=== PATIENT | male | born 1955 | race Two or more races ===

== ENCOUNTER 2017-01-24 00:10 | Emergency (ER) | payer SELFPAY ==
[~2017-01-24] VITALS: Ht 165.1 cm; Wt 54.4 kg
[2017-01-24] MEDS ORDERED: Pseudoephedrine 30mg tab ORAL ONE (01:30)
[2017-01-24] MEDS ORDERED: Neo-Synephrine 0.5% Nasal Soln NASAL ONE (01:30)
[2017-01-24 02:30] VITALS: BP 166/91
[2017-01-24] MEDS ORDERED: Phenylephrine 50 MG in D5W 245 ML IV SCH ×2 (02:30→02:45)
[2017-01-24] MEDS ORDERED: Phenylephrine 10mg/ml 5ml vial IV ONE (02:36)
--- NOTE | 2017-01-24 03:26 | Emergency Room Report ---
History of Present Illness General Chief Complaint: Male Urogenital Problems Source: Patient Present Illness HPI This is a 61-year-old male with a history of rectal dysfunction. He is seen a urologist in [place]. He received injection to the penis yesterday at 1 PM. Since then he has an erection. Now painful. He uses Andrew-Synephrine nasal spray without any relief. Nothing helped. He presents here over 12 hours later. No trauma. Never had this problem before. Allergies: Coded Allergies: No Known Allergies (Unverified , 01/24/17) Patient History Past Medical History: see triage record, old chart reviewed Past Surgical History: other Pertinent Family History: none Social History: Denies: smoking Immunizations: other Reviewed Nursing Documentation: PMH: Agreed, PSxH: Agreed Nursing Documentation-PMH Past Medical History: No Stated History Review of Systems Eye: Denies: blurred vision, eye pain ENT: Denies: ear pain, nose congestion, throat swelling Respiratory: Denies: cough, shortness of breath Cardiovascular: Denies: chest pain, palpitations Gastrointestinal: Denies: abdominal pain, diarrhea, nausea, vomiting Musculoskeletal: Denies: back pain, joint pain Skin: Denies: rash Neurological: Denies: headache, numbness Endocrine: Denies: increased thirst, increased urine Hematologic/Lymphatic: Denies: easy bruising All Other Systems: negative except mentioned in HPI Physical Exam Vital Signs Date Time Temp Pulse Resp B/P Pulse Ox O2 Delivery O2 Flow Rate FiO2 01/24/17 00:46 98.2 80 16 158/75 100 Room Air vitals with hypertension Sp02 EP Interpretation: reviewed, normal General Appearance: well appearing, no apparent distress, alert Head: normocephalic, atraumatic Eyes: bilateral eye EOMI, bilateral eye PERRL ENT: hearing grossly normal, normal pharynx Neck: full range of motion, supple, no meningismus Respiratory: chest non-tender, lungs clear, normal breath sounds Cardiovascular #1: regular rate, rhythm, no murmur Gastrointestinal: normal bowel sounds, non tender, no mass, no organomegaly, no bruit, non-distended Genitourinary: other - Priapism Musculoskeletal: back normal, gait/station normal, normal range of motion Neurologic: alert, oriented x3 Psychiatric: mood/affect normal Skin: warm/dry Procedures Critical Care Time Critical Care Time Critical care is mandated in this patient who presented with priapism over 12 hours. Patient require my urgent intervention to attenuate the risks of necrosis which may lead to penile necrosis. Critical care time is 35 minutes excluding any reportable procedure. Critical care time included evaluation, multiple reevaluation, looking at old charts, interpreting laboratory and diagnostic data, discussing case with patient and family and consultants, and charting. Medical Decision Making Diagnostic Impression: Primary Impression: Priapism ER Course Patient with priapism. This induced by medication injection. There was no Sudafed in the hospital. Patient is given Andrew-Synephrine nasal spray without any relief. No relief with ice pack to the groin. I called Dr. Forman, urologist. He woke him in to see the patient. I order Phenylephredrine to the bedside. Urologist came to the ER and the procedure the patient. I presume results. Patient felt better. We'll discharge home. Last Vital Signs Date Time Temp Pulse Resp B/P Pulse Ox O2 Delivery O2 Flow Rate FiO2 01/24/17 00:46 98.2 80 16 158/75 100 Room Air Status: improved Disposition: HOME, SELF-CARE Condition: Stable Referrals: NON PHYSICIAN (PCP) Additional Instructions: Followup with your urologist in 2-3 days. Return if symptom worsen. DARREL GUPTA M.D. Jan 24, 2017 03:26
[2017-01-24 05:15] VITALS: BP 133/77
--- NOTE | 2017-01-24 05:24 | Consultation ---
History of Present Illness General Date patient seen: Jan 24, 2017 Time patient seen: 05:15 Chief Complaint: Male Urogenital Problems Reason for Consultation: priapism Present Illness HPI 61 yo male self injected with medication per urologist today yesterday at 1 pm. Patient's erection did not go down. Became concerned about 7-8 hours later when he started to have pain. Presented to ED last night, evaluated and conservative measures attempted by ER to no avail. ER contacted me at approximately 0230 to assist. Patient is comfortable but nervous. Allergies: Coded Allergies: No Known Allergies (Unverified , 01/24/17) Patient History History Provided By: Patient Healthcare decision maker Resuscitation status Advanced Directive on File Review of Systems Constitutional: Denies: chills, fever, malaise, no symptoms, other, see HPI, sweats, weakness Eye: Denies: acuity changes, blurred vision, discharge, double vision, eye pain , no symptoms, nose congestion, nose pain, other, see HPI, tearing ENT: Denies: ear discharge, ear pain, hearing loss, mouth pain, nasal discharge , no symptoms, nose congestion, nose pain, other, see HPI, throat pain, throat swelling Respiratory: Denies: WATSON, cough, no symptoms, orthopnea, other, see HPI, shortness of breath, sputum, stridor, wheezing Cardiovascular: Denies: PND, chest pain, edema, no symptoms, other, palpitations, see HPI, syncope Gastrointestinal: Denies: abdominal pain, constipation, diarrhea, hematemesis, melena, nausea, no symptoms, other, see HPI, vomiting Genitourinary: Reports: pain Musculoskeletal: Denies: back pain, gout, joint pain, joint swelling, muscle pain, muscle stiffness, no symptoms, other, see HPI Skin: Denies: change in color, change in hair/nails, dryness, lesions, no symptoms, other, rash, see HPI Psychiatric: Denies: HI, SI, anxiety, depressed feelings, emotional problems, hallucinations, no symptoms, other, prior hx, see HPI Neurological: Denies: dizziness, focal weakness, headache, no symptoms, numbness, other, paresthesia, see HPI, seizure, syncope, tingling, tremors Endocrine: Denies: excessive sweating, flushing, increased thirst, increased urine, intolerance to temperature, no symptoms, other, see HPI, unexplained weight loss Hematologic/Lymphatic: Denies: anemia, blood clots, diathesis, easy bleeding, easy bruising, no symptoms, other, see HPI, swollen glands Physical Exam General Appearance: mild distress HEENT: normocephalic, atraumatic Respiratory/Chest: lungs clear Cardiovascular/Chest: normal rate, regular rhythm Abdomen: non tender, soft Genitourinary/Rectal: other - erect penis Neurologic: alert, oriented x 3 Last 24 Hour Vital Signs Date Time Temp Pulse Resp B/P Pulse Ox O2 Delivery O2 Flow Rate FiO2 01/24/17 00:46 98.2 80 16 158/75 100 Room Air Intake and Output 01/23/17 01/24/17 19:00 07:00 Intake Total 0 ml Balance 0 ml Intake Oral 0 ml Height (Feet): 5 Height (Inches): 5.00 Weight (Pounds): 120 Medications Current Medications Medications (Trade) Dose Ordered Sig/Mi Route PRN Reason Start Time Stop Time Status Last Admin Dose Admin Phenylephrine HCl/ Dextrose (Phenylephrine/ D5W) 250 ml @ 0 mls/hr Q24H IV 01/24/17 02:45 02/23/17 02:44 Objective Narrative Under sterile conditions, patient on a monitor, after informed consent done initial 1 ml of pre-mixed 500 mcg phenylephrine injected into right corpora. No response after 1 minute. Proceeded with aspiration with 14 gauge needle into left corpora. Immediate release of dark blood. Approximately 300 mL blood evacuated. In total 3.5 mL of 500 mcg pre-mixed phenylephrine delivered. erection was examined 15 minutes after aspiration and noted to still be detumesced. patient tolerated procedure well. Assessment/Plan Status: stable Assessment/Plan Priapism from likely overdose of intracorporeal injection into penis. Erection persisted for over 12 hours. Counseled patient on real risk of corporal scarring at this point. Advised against using medication anymore and advised to abstain from sex for next 4-6 weeks. Expect bruising. Patient understood and acknowledged he should follow up with own urologist to discuss further management of ED. 1. f/u own urologist in 1-3 days Franklin Forman M.D. Jan 24, 2017 05:24
[2017-01-24 05:42] VITALS: BP 133/90
== END 2017-01-24 05:42 | disposition home or self-care (01) ==
LOC: EMR 01:01
DX: N48.33 Priapism, drug-induced (principal)
CPT/HCPCS: 99291; J2370